=== PATIENT | female | born 1980 | race Caucasian/White ===

== ENCOUNTER 2019-01-26 18:59 | Inpatient (IN) | payer OTHER ==
[~2019-01-26] VITALS: Ht 170.2 cm; Wt 86.0 kg
[2019-01-26 19:18] VITALS: Ht 170.2 cm; Wt 86.0 kg
--- NOTE | 2019-01-26 20:54 | NUR ---
PATIENT [id number] PRESENTS TO THE ED WITH C/O SOB, CHEST PAIN S/O FOOT SURGERY X 4 DAYS. PATIENT STATES SHE FEELS PAIN DURING INSPIRATION. BREATHING EVEN AND UNLABORED. VSS- SKIN WARM, DRY AND INTACT. NO OTHER SS OF DISTRESS NOTED. PLACED PATIENT IN GOWN AND ON ALL MONITORS FOR FURTHER OBSERVATION. WILL CONTINUE TO MONITOR.
[2019-01-26 21:05] LABS: BASOPHIL % 0.6 % (0-2); PLATELET COUNT 302 x10^3mcL (130-400); RED CELL DISTRIBUTION WIDTH 12.3 % (11.5-14.5)
[2019-01-26 21:12] LABS: CALCIUM 9.4 mg/dL (8.5-10.1); CARBON DIOXIDE 28.3 mmol/L (21-32); CHLORIDE SERUM 99 mmol/L (98-107); CREATININE SERUM 0.9 mg/dL (0.6-1.0); GFR1 > 60 mL/min; GLUCOSE SERUM 86 mg/dL (74-106); POTASSIUM SERUM 4.5 mmol/L (3.5-5.1); SODIUM SERUM 137 mmol/L (136-145)
[2019-01-26 21:17] LABS: ALBUMIN 3.8 g/dL (3.4-5.0); ALKALINE PHOSPHATASE 74 U/L (46-116); ALT/SGPT 20 U/L (14-59); AST/SGOT 21 U/L (15-37); BILIRUBIN TOTAL 0.33 mg/dL (0.20-1.00); TOTAL PROTEIN, SERUM 7.9 g/dL (6.4-8.2)
--- NOTE | 2019-01-26 22:23 | NUR ---
PATIENT LYING ON GURNEY- NO SS OF DISTRESS NOTED. BREATHING EVEN AND UNLABORED. WILL CONTINUE TO MONITOR.
--- NOTE | 2019-01-26 23:00 | NUR ---
PATIENT TAKEN FOR CT- VSS
--- NOTE | 2019-01-26 23:30 | NUR ---
PATIENT PRESENTED BACK TO ROOM FROM CT SCAN AND WAS ADVISED RIGHT AC IV HAD INFILTRATED DURING CONTRAST SCAN. COLD COMPRESS WAS PLACED FOR 15 MINUTES AND ALTERNATING WITH WARM COMPRESSES. SECOND IV STARTED TO LEFT AC, FLUSHED WITH 10 ML NS-- PATENT, W/ NO SIGNS OF INFILTRATION. WILL CONTINUE TO MONITOR.
--- NOTE | 2019-01-26 23:43 | NUR ---
MEDICATED PER MD ORDERS
--- NOTE | 2019-01-27 00:59 | NUR ---
MEDICATED PER MD ORDERS
[2019-01-27] MEDS ORDERED: NOR10T PO (01:02)
[2019-01-27] MEDS ORDERED: HEALTH MART IB200 MG PO (01:03)
--- NOTE | 2019-01-27 01:27 | NUR ---
MEDICATED PER MD ORDERS
--- NOTE | 2019-01-27 01:31 | NUR ---
PROVIDED COLD AND WARM THERAPY TO UPPER RIGHT ARM INFILTRATED WITH CONTRAST EARLIER. WILL CONTINUE TO MONITOR.
--- NOTE | 2019-01-27 02:00 | NUR ---
RECEIVED PT FROM ER [facility] WITH DAUGHTER AND NURSE AT BEDSIDE. PT IS AWAKE, ALERT, ORIENTED X4. SPEECH CLEAR. ABLE TO MAKE NEEDS KNOWN. PLACED PT ON TELE 17 SHOWS NSR. NO CHEST PAIN NOTED. PT WITH CHIEF C/O SOB AND LEFT FOOT PAIN WITH ECCHYMOSIS. PT STATES SHE HAD SURGERY X4 DAYS AGO FOR PLANTAR FASCIITIS. LLE IS ELEVATED WITH TWO PILLOWS, WRAPPED WITH GAUZE AND MAHNAZ BANDAGE. UPON UNWRAPPING BANDAGE, PT NOTED TO HAVE BRUISING AND X2 SMALL INCISIONS NOTED WITH SUTURES; CDI. PICTURES TAKEN. PT RUE ELEVATED WITH PILLOW AND NEW ICE PACK GIVEN AT THIS TIME FOR SWELLING D/T IV INFILTRATION. LUNG SOUNDS CLEAR. DOES NOT APPEAR TO BE IN ANY RESPIRATORY DISTRESS. IV TO LAC INTACT. PT STATES SHE CAN AMBULATE WITHOUT ASSISTANCE. HISTORY OBTAINED FROM PT. INITIAL ASSESSMENT COMPLETED. ORIENTED PT TO ROOM AND SURROUNDINGS. INSTRUCTED PT TO USE CALL LIGHT, WHICH IS WITHIN REACH. BED IS IN LOWEST POSITION. WILL CONTINUE TO MONITOR CLOSELY.
[2019-01-27 02:04] VITALS: BP 138/77
--- NOTE | 2019-01-27 05:05 | NUR ---
PT SLEEPING IN INTERVALS. RUE AND LLE ELEVATED WITH PILLOWS. DAUGHTER AT BEDSIDE. WILL CONTINUE TO MONITOR CLOSELY.
[2019-01-27 05:43] VITALS: BP 94/61
--- NOTE | 2019-01-27 06:10 | NUR ---
PT C/O PAIN THROUGH OUT BODY, MOSTLY TO LLE, MEDICATED WITH TORADOL ORDERED FOR PAIN. IVF INSUING WELL TO LAC WITH NO S/S OF INFILTRATION NOTED. RUE REMAINS ELEVATED WITH PILLOW AND ALTERNATING HEAT AND COLD COMPRESSES. LLE ELEVATED WITH PILLOWS AND COLD COMPRESS APPLIED THROUGH OUT SHIFT. ALL NEEDS TENDED TO. CALL LIGHT WITHIN REACH. WILL ENDORSE TO INCOMING SHIFT.
[2019-01-27 06:26] LABS: BASOPHIL % 0.3 % (0-2); PLATELET COUNT 296 x10^3mcL (130-400); RED CELL DISTRIBUTION WIDTH 12.1 % (11.5-14.5)
--- NOTE | 2019-01-27 07:10 | NUR ---
RECIEVED PT LAYING IN BED, A/O X4 NO C/O MOORE OR DIZZINESS.TELE MONITOR# 17 CONNECTED TO PT. DENIES CP OR PRESSURE. IV AT LAC INTACT AND PATENT WITH FREDY REDNESS. NS RUNNING AT 80ML/HR. SAFETY PRECAUTIONS IN PLACE, CALL VIOLETA JEFF, WAITING FOR DR ROBINS TO ASSESS PT FOR FURTHER ORDERS. WILL MONITOR.
[2019-01-27 07:40] LABS: ALBUMIN 3.6 g/dL (3.4-5.0); ALKALINE PHOSPHATASE 65 U/L (46-116); ALT/SGPT 23 U/L (14-59); AST/SGOT 26 U/L (15-37); BILIRUBIN TOTAL 0.4 mg/dL (0.20-1.00); CALCIUM 8.8 mg/dL (8.5-10.1); CARBON DIOXIDE 27.6 mmol/L (21-32); CHLORIDE SERUM 100 mmol/L (98-107); CREATININE SERUM 0.8 mg/dL (0.6-1.0); GFR1 > 60 mL/min; GLUCOSE SERUM 90 mg/dL (74-106); MAGNESIUM 1.8 mg/dL (1.8-2.4); POTASSIUM SERUM 4.1 mmol/L (3.5-5.1); SODIUM SERUM 137 mmol/L (136-145); TOTAL PROTEIN, SERUM 7.2 g/dL (6.4-8.2)
--- NOTE | 2019-01-27 09:03 | NUR ---
PT TAKEN DOWN VIA WC TO RADIOLOGY BY [employer] RECEIVER.
[2019-01-27 10:45] VITALS: BP 147/92
--- NOTE | 2019-01-27 11:19 | NUR ---
PT C/O 02/21 LEG PAIN, MEDICATED WITH NORCO PER EMAR, WILL REASSESS.
[2019-01-27 11:59] VITALS: BP 147/92
--- NOTE | 2019-01-27 12:08 | NUR ---
MADE AWARE BY [employer] TECH THAT PT COULD NOT HAVE STAT US VASCULAR AT THIS TIME SINCE PT HAD VQ SCAN THIS MORNING ACCORDING TO Peter Blueberry PT WILL HAVE TOO MUCH RADIATION EXPOSURE ON TECH. RECOMENDATION BY Peter Blueberry FOR EXAM TO BE DONE AFTER 1500. PER [facility] DR. PRIEST WAS MADE AWARE AND WANTED ATTENDING NURSE TO KNOW. CONT TO MONITOR.
--- NOTE | 2019-01-27 12:57 | NUR ---
PT C/O 01/21 LEG/HIP PAIN, MEDICATED WITH TORADOL PER EMAR, WILL REASSESS.
[2019-01-27 13:24] VITALS: BP 141/85
--- NOTE | 2019-01-27 16:37 | NUR ---
PT C/O ANXIETY, MEDICATED WITH ATIVAN PER EMAR, WILL REASSESS.
[2019-01-27 17:51] VITALS: BP 143/51
--- NOTE | 2019-01-27 18:09 | NUR ---
PT STABLE AT THIS TIME. NO C/O DISTRESS OR SOB. ALL CARES TOLERATED WELL. PT A/O X4, NO MOORE OR DIZZINESS. TELE MONITOR #17 CONNECTED TO PT. DAUGHTER AT BEDSIDE. IV INTACT AND PATENT TO LAC WITH NO REDNESS OR INFLAMMATION NOTED. NS 80ML/HR RUNNING. SAFETY PRECAUTIONS IN PLACE, CALL LIGHT WITHIN REACH, ULTRASOUND RESULTS PENDING FOR DISCHARGE, WILL ENDORSE CARE TO NIGHT NURSE.
--- NOTE | 2019-01-27 19:19 | NUR ---
RECIEVED CRITICAL RESULT FROM RIGHT ARM UTRASOUND TEST. CALLED DR PRIEST IMMEDIATLY AND NOTIFIED HIM. AFTER DISCUSSING RESULT WITH DR PRIEST, HE STATED WITH THE RESULT, "HE BELIEVED THE SWELLING IS DUE TO TISSUE SWELLING FROM IV INFILTRATION AND NOT A THROMBOSIS". DR PRIEST ALSO REQUESTED TO SPEAK TO PT OVER THE PHONE. PT WAS PUT ON PHONE WITH DR PRIEST AND DR PRIEST DISCUSSED THE UTRASOUND RESULTS AND POC WITH PT. PT VERBALIZED UNDERSTANDING. AFTER PT SPOKE WITH DR PRIEST, HE EXPLAINED TO ME THAT THE PT WAS CLEAR FOR DISCHARGE, THAT SHE SHOULD FOLLOW UP WITH HIM IN ONE WEEK AT HIS [place] OFFICE, THAT THE PT SHOULD ELEVATE BOTH ARMS TO REDUCE SWELLING, THAT SHE SHOULD FOLLOW UP WITH HER PCP ON THE DATE GIVEN ON DISCHARGE INSTRUCTIONS, AND THAT SHE CAN TURN OUT WORKER HER [employer] PERSCRIPTION AT HIS OFFICE WELL. DR PRIESTS ADDRESS, APPT TIMES, AND INSTRUCTIONS WERE GIVEN TO PT. ALL FORMS SIGNED, EDUCATION GIVEN, AND IV TAKEN OUT WITH CATHETER INTACT, NO REDNESS OR INFLAMMATIN NOTED. TIMES WAS GIVEN TO PT ON DISCHARGE INTRUCTIONS AND
== END 2019-01-27 20:45 | disposition home or self-care (01) | DRG 351 ==
LOC: ED 18:59 → DU 01-27
PROVIDERS: Emergency Medicine; ADMIT Internal Medicine Pulmonary Disease
DX: M72.2 Plantar fascial fibromatosis (principal); F41.9 Anxiety disorder, unspecified; Z87.01 Personal history of pneumonia (recurrent); Z88.0 Allergy status to penicillin; Z88.5 Allergy status to narcotic agent
CPT/HCPCS: 78598; 83880; A9540; G0378; J1650; J1885; J3010; J7030; Q0092; Q9967